=== PATIENT | male | born 1980 | race Caucasian/White ===

== ENCOUNTER 2017-08-23 19:37 | Emergency (ER) | payer BC ==
[2017-08-23] MEDS ORDERED: PROPARACAINE HCL OPTH 15ML BTL OPTH ONE (19:43)
--- NOTE | 2017-08-23 19:46 | Emergency Department Record ---
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 He was using a shield but at times did look. No vision loss. NO other recent illness. No history of glasses or contacts. MD chief complaint: Eye pain, Eye redness, Vision change, Other (Onset after welding) -: Hour(s) Onset Description: Gradual Location: Both eyes Place: Home If Injury: UV exposure Eye Symptoms: Burning Severity: Moderate If Pain, Quality: Aching Consistency: Constant Associated Symptoms: None Treatments Prior to Arrival: None - Related Data Visual acuity (L) = 20/: 20 Visual acuity (R) = 20/: 20 With correction: No Hx Tetanus Toxoid Vaccination: Yes Patient Tetanus UTD (within 5 yrs): No Allergies Allergy/AdvReac Type Severity Reaction Status Date / Time No Known Drug Allergies Allergy Verified 12/07/15 11:24 Review of Systems Constitutional: Denies: Chills, Fever, Malaise, Weakness Eyes: Reports: As per HPI, Eye pain, Vision change ENT: Denies: Congestion, Ear pain, Epistaxis, Throat pain Respiratory: Denies: Cough, Dyspnea Cardiovascular: Denies: Chest pain, Palpitations, Syncope Endocrine: Denies: Fatigue Gastrointestinal: Denies: Abdominal pain, Diarrhea, Nausea, Vomiting Genitourinary: Denies: Dysuria, Frequency, Hematuria Musculoskeletal: Denies: Arthralgia, Joint swelling, Myalgia Skin: Denies: Bruising, Change in color, Rash Neurological: Denies: Headache, Numbness, Vertigo, Weakness Psychiatric: Denies: Anxiety Hematological/Lymphatic: Denies: Anemia, Blood Clots, Easy bleeding, Easy bruising, Swollen glands Past Medical History - SOCIAL HISTORY Smoking Status: Never smoker - RESPIRATORY Hx Respiratory Disorders: No - CARDIOVASCULAR Hx Cardio Disorders: No - NEURO Hx Neuro Disorders: No - GI Hx GI Disorders: No - Hx Genitourinary Disorders: No - ENDOCRINE Hx Endocrine Disorders: No - MUSCULOSKELETAL Hx Musculoskeletal Disorders: No - PSYCH Hx Psych Problems: No - HEMATOLOGY/ONCOLOGY Hx Hematology/Oncology Disorders: No Physical Exam - General General Appearance: Alert, Oriented x3, Cooperative, No acute distress Limitations: No limitations - Head Head exam: Normal inspection - Eye Eye exam: PERRL, Conjunctival injection, EOMI. negative: Nystagmus, Periorbital swelling, Periorbital tenderness Pupils: Normal accommodation. negative: Irregular, Unequal Visual acuity (L) = 20/: 20 Visual acuity (R) = 20/: 20 - ENT ENT exam: Normal exam, Mucous membranes moist Ear exam: Normal external inspection Nasal Exam: Normal inspection Mouth exam: Normal external inspection - Neck Neck exam: Normal inspection - Respiratory Respiratory exam: Normal lung sounds bilaterally. negative: Respiratory distress - Cardiovascular Cardiovascular Exam: Regular rate, Normal rhythm, Normal heart sounds - Rectal Rectal exam: Deferred - exam: Deferred - Extremities Extremities exam: Normal inspection - Back Back exam: Reports: Full ROM - Neurological Neurological exam: Alert, CN II-XII intact, Oriented X3. negative: Altered - Psychiatric Psychiatric exam: Normal affect, Normal mood - Skin Skin exam: Dry, Intact, Normal color, Warm Course - Reevaluation(s) Reevaluation #1: 08/23/17 20:02 The patient was stained and examined with the slit lamp On the left there is minimal very fine uptake in a pin point pattern The bilateral AC are clear The pupils are regular and round bilateral Disposition Disposition: Discharge Clinical Impression: UV keratitis Disposition: Home, Self-Care Condition: (1) Good Instructions: Corneal Flash [place] (ED) Additional Instructions: Return tomorrow if worse, any changes in vision or any new concerns Avoid bright lights Time of Disposition: 20:04 Quality - Quality Measures Quality Measures: N/A - Blood Pressure Screening Does Patient Have Any of the Following: No Blood Pressure Classification: Hypertensive Reading Systolic Measurement: 157 Diastolic Measurement: 96 Screening for High Blood Pressure: < Pre-Hypertensive BP, F/U Documented > [ [id number]] Pre-Hypertensive Follow-up Interventions: Referral to alternative/primary care provider.
[2017-08-23] MEDS ORDERED: POLYMYXIN B SULF/TRIMETHOPRIM 10ML BTL OPTH ONE (20:00)
[2017-08-23] MEDS ORDERED: IBUPROFEN 600 MG TABLET PO ONE (20:00)
[2017-08-23] MEDS ORDERED: Diph,Pert(Acell),Tet Vac 0.5 ML SYR IM ONE (20:00)
[2017-08-23] MEDS ORDERED: HYDROCODONE/APAP 5/325MG TABLET PO ONE (20:00)
== END 2017-08-23 20:20 | disposition home or self-care (01) ==
LOC: ER 19:37
DX: H16.132 Photokeratitis, left eye (principal); W89.8XXA Exposure to other man-made visible and ultraviolet light, initial encounter; Y92.009 Unspecified place in unspecified non-institutional (private) residence as the place of occurrence of the external cause
CPT/HCPCS: 90715; 96372; 99283